=== PATIENT | female | born 1975 | race Caucasian/White ===

== ENCOUNTER 2018-10-31 21:37 | Emergency (ER) | payer MEDICAID ==
[~2018-10-31] VITALS: Ht 162.6 cm; Wt 130.1 kg
[2018-10-31 22:03] VITALS: BP 155/64
== END 2018-10-31 23:40 | disposition home or self-care (01) ==
LOC: ED 23:28
DX: S93.492A Sprain of other ligament of left ankle, initial encounter (principal); S93.602A Unspecified sprain of left foot, initial encounter; E03.9 Hypothyroidism, unspecified; J45.909 Unspecified asthma, uncomplicated; E11.9 Type 2 diabetes mellitus without complications; I10 Essential (primary) hypertension; X50.1XXA Overexertion from prolonged static or awkward postures, initial encounter; Y93.89 Activity, other specified; Y92.009 Unspecified place in unspecified non-institutional (private) residence as the place of occurrence of the external cause; Y99.8 Other external cause status
CPT/HCPCS: 29515; 99283

== ENCOUNTER 2019-04-02 00:28 | Emergency (ER) | payer MEDICAID ==
[~2019-04-02] VITALS: Ht 162.6 cm; Wt 125.8 kg
[~2019-04-02 00:28] MED LIST: ALBUTEROL; BCP; LEVO50CA2; LISI5TAB; METF-162; METROGEL; MOME17SP; MONT10TA6; QVAR
--- NOTE | 2019-04-02 00:45 | NUR ---
MD AT BEDSIDE TO ASSESS PT
[2019-04-02] MEDS ORDERED: IBUPROFEN 600 MG TABLET ONE (00:52)
[2019-04-02] MEDS ORDERED: ONDANSETRON ODT 4 MG ONE (00:53)
[2019-04-02] MEDS ORDERED: ACETAMINOPHEN 500 MG TABLET ONE (00:53)
[2019-04-02] MEDS ORDERED: ONDANSETRON ODT 4 MG PO ONE (01:00)
[2019-04-02] MEDS ORDERED: IBUPROFEN 600 MG TABLET PO ONE (01:00)
[2019-04-02] MEDS ORDERED: ACETAMINOPHEN 500 MG TABLET PO ONE (01:00)
--- NOTE | 2019-04-02 02:03 | NUR ---
BREAK RN: RE-EVALUATION DONE. PATIENT DISCHARGED WITH PRESCRIPTIONS AND INSTRUCTION. VERBALIZED UNDERSTANDING.
[2019-04-02 02:04] VITALS: BP 121/61
== END 2019-04-02 02:06 | disposition home or self-care (01) ==
LOC: ED 00:58
DX: J02.8 Acute pharyngitis due to other specified organisms (principal); B97.89 Other viral agents as the cause of diseases classified elsewhere; R11.0 Nausea; I10 Essential (primary) hypertension; E11.9 Type 2 diabetes mellitus without complications; J45.909 Unspecified asthma, uncomplicated; Z87.891 Personal history of nicotine dependence
CPT/HCPCS: 71046; 99284; Q0162

== ENCOUNTER 2019-04-23 20:12 | Emergency (ER) | payer MEDICAID ==
[~2019-04-23] VITALS: Ht 162.6 cm; Wt 124.5 kg
[2019-04-23 20:15] VITALS: BP 145/97
--- NOTE | 2019-04-23 20:51 | NUR ---
patient has had cold and flu like symtpoms since friday
--- NOTE | 2019-04-23 21:14 | NUR ---
report to lee sampson
== END 2019-04-23 22:05 | disposition home or self-care (01) ==
LOC: ED 21:07
DX: J00 Acute nasopharyngitis [common cold] (principal); B34.9 Viral infection, unspecified; M79.10 Myalgia, unspecified site; I10 Essential (primary) hypertension; E11.9 Type 2 diabetes mellitus without complications; E03.9 Hypothyroidism, unspecified; Z87.891 Personal history of nicotine dependence
CPT/HCPCS: 71046; 87081; 87880; 99284

== ENCOUNTER 2019-08-21 13:27 | Emergency (ER) | payer MEDICAID ==
[~2019-08-21] VITALS: Ht 162.6 cm; Wt 120.0 kg
[2019-08-21 13:31] VITALS: BP 129/79
== END 2019-08-21 16:59 | disposition home or self-care (01) ==
LOC: ED 15:59
DX: B34.9 Viral infection, unspecified (principal); M79.10 Myalgia, unspecified site; I10 Essential (primary) hypertension; E11.9 Type 2 diabetes mellitus without complications; J45.909 Unspecified asthma, uncomplicated
CPT/HCPCS: 71045; 93005; 99283; 99285; U0001-CS

== ENCOUNTER 2019-09-11 08:35 | Emergency (ER) | payer MEDICAID ==
[2019-09-11 08:37] VITALS: BP 156/84
--- NOTE | 2019-09-11 09:06 | NUR ---
GLUCOMETER 225
--- NOTE | 2019-09-11 09:14 | NUR ---
AFTER LABS DRAWN XRAY AT BEDSIDE
[2019-09-11 09:28] LABS: BASOPHILS # (AUTO) 0.04 x10^3/uL (0-0.1); BASOPHILS % (AUTO) 0 % (0-1); EOSINOPHILS # (AUTO) 0.47 x10^3/uL (0-0.4); EOSINOPHILS % (AUTO) 4 % (1-7); LYMPHOCYTES # (AUTO) 4.67 x10^3/uL (1-3.4); LYMPHOCYTES % (AUTO) 35 % (22-44); MD NO; MEAN CORPUSCULAR HEMOGLOBIN 31.8 pg (27.0-34.8); MEAN CORPUSCULAR VOLUME 96.4 fL (80-100); MEAN PLATELET VOLUME 8.2 fL (7.4-10.4); MONOCYTES # (AUTO) 0.94 x10^3/uL (0.2-0.8); MONOCYTES % (AUTO) 7 % (2-9); NEUTROPHILS % (AUTO) 54 % (42-75); PLATELET COUNT 349 x10^3/uL (130-400); RED BLOOD COUNT 4.44 x10^6/uL (3.82-5.3); RED CELL DISTRIBUTION WIDTH 13.6 % (9.6-15.2)
[2019-09-11 09:46] LABS: ALBUMIN 2.7 g/dL (3.4-5.0); ANION GAP 10 mmol/L (5-15); CALCIUM 8.9 mg/dL (8.5-10.1); CHLORIDE 101 mmol/L (98-107); CREATININE 0.78 mg/dL (0.55-1.02)
[2019-09-11] MEDS ORDERED: HYDROcodone/APAP 5/325 TABLET ONE (10:12)
[2019-09-11] MEDS ORDERED: HYDROcodone/APAP 5/325 TABLET PO ONE (10:30)
--- NOTE | 2019-09-11 10:30 | NUR ---
RUBINA ROBERTSON TAPED TOE AND MEDICATED NOTED ON MAY. AFTER DISCHARGE INSTRUCTIONS GIVEN, AMBULATED TO DISCHARGE WINDOW STEADY GAIT
== END 2019-09-11 10:32 | disposition home or self-care (01) ==
LOC: ED 08:59
DX: L03.032 Cellulitis of left toe (principal); E11.65 Type 2 diabetes mellitus with hyperglycemia; I10 Essential (primary) hypertension; E03.9 Hypothyroidism, unspecified; J45.909 Unspecified asthma, uncomplicated
CPT/HCPCS: 80048; 82040; 82962; 85025; 99284

== ENCOUNTER 2020-02-21 16:35 | Emergency (ER) | payer MEDICAID ==
[~2020-02-21] VITALS: Ht 162.6 cm; Wt 129.8 kg
[2020-02-21 16:42] VITALS: BP 144/79
--- NOTE | 2020-02-21 19:56 | NUR ---
karina godoy brought ama form signed.
== END 2020-02-21 19:57 | disposition left against medical advice (07) ==
LOC: ED 18:15
DX: B34.9 Viral infection, unspecified (principal); R94.31 Abnormal electrocardiogram [ECG] [EKG]
CPT/HCPCS: 71045; 93005; 99283; 99284

== ENCOUNTER 2020-04-24 17:00 | Emergency (ER) | payer MEDICAID ==
[~2020-04-24] VITALS: Ht 162.6 cm; Wt 128.8 kg
--- NOTE | 2020-04-24 20:27 | NUR ---
PT. TO ROOM FROM LOBBY AT THIS TIME. PROVIDED WITH PILLOW PER REQUEST. CALL LIGHT PROVIDED.
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
[2020-04-24] MEDS ORDERED: METF500T17 PO (20:33)
[2020-04-24] MEDS ORDERED: LISI-606 PO (20:33)
[2020-04-24] MEDS ORDERED: LINA5TAB PO (20:33)
[2020-04-24] MEDS ORDERED: LEVO125T5 PO (20:33)
[2020-04-24] MEDS ORDERED: ALBU18HF INH (20:33)
[2020-04-24] MEDS ORDERED: SIMV40TA20 PO (20:33)
[2020-04-24] MEDS ORDERED: FLUT16SP24 NAS (20:34)
[2020-04-24 20:35] VITALS: BP 165/97
[2020-04-24] MEDS ORDERED: KETOROLAC 60 MG/2 ML ONE (20:45)
--- NOTE | 2020-04-24 20:51 | NUR ---
TORADOL GIVEN. PT AWAITING XR.
[2020-04-24] MEDS ORDERED: METHOCARBAMOL 750 MG TABLET PO ONE (21:00)
[2020-04-24] MEDS ORDERED: KETOROLAC 30 MG/1 ML IM ONE (21:00)
[2020-04-24] MEDS ORDERED: METHOCARBAMOL 750 MG TABLET ONE (21:24)
== END 2020-04-24 21:33 | disposition home or self-care (01) ==
LOC: ED 21:24
DX: S16.1XXA Strain of muscle, fascia and tendon at neck level, initial encounter (principal); I10 Essential (primary) hypertension; E11.9 Type 2 diabetes mellitus without complications; E03.9 Hypothyroidism, unspecified; J45.909 Unspecified asthma, uncomplicated; Z87.891 Personal history of nicotine dependence; Z88.1 Allergy status to other antibiotic agents; Z88.0 Allergy status to penicillin; V43.62XA Car passenger injured in collision with other type car in traffic accident, initial encounter; Y93.89 Activity, other specified; Y92.89 Other specified places as the place of occurrence of the external cause; Y99.8 Other external cause status
CPT/HCPCS: 72050; 96372; 99283; J1885

== ENCOUNTER 2020-10-20 11:34 | Emergency (ER) | payer MEDICAID ==
[~2020-10-20] VITALS: Ht 162.6 cm; Wt 127.1 kg
[~2020-10-20 11:34] MED LIST changes: +ALBU18HF INH; +FLUT16SP24 NAS; +LEVO125T5 PO; +LINA5TAB PO; +LISI-606 PO; +METF500T17 PO; +SIMV40TA20 PO
[2020-10-20 11:44] VITALS: BP 168/90
[2020-10-20] MEDS ORDERED: IBUPROFEN 200 MG TABLET PO ONE (12:30)
[2020-10-20] MEDS ORDERED: IBUPROFEN 600 MG TABLET ONE (12:39)
== END 2020-10-20 12:51 | disposition home or self-care (01) ==
LOC: ED 12:27
DX: M72.2 Plantar fascial fibromatosis (principal); E03.9 Hypothyroidism, unspecified; I10 Essential (primary) hypertension; J45.909 Unspecified asthma, uncomplicated; E11.65 Type 2 diabetes mellitus with hyperglycemia
CPT/HCPCS: 99283